=== PATIENT | female | born 1985 | race African-American/Black ===

== ENCOUNTER 2018-09-09 20:28 | Emergency (ER) | payer SELFPAY ==
[2018-09-09 20:43] VITALS: BP 111/69
--- NOTE | 2018-09-09 21:16 | EDM.PDOC ---
ED HPI GENERAL MEDICAL PROBLEM - General Chief Complaint: Lower Extremity Injury/Pain Stated Complaint: RT HIP HURTS Time Seen by Provider: 09/09/18 21:16 Source of Information: Reports: Patient - History of Present Illness INITIAL COMMENTS - FREE TEXT/NARRATIVE: HISTORY AND PHYSICAL: History of present illness: [Patient presents with right hip pain that began insidiously she rates 5 out of 10 radiates down along the iliotibial band half way to the knee no actual knee pain she moves fairly freely on and off the exam table does not elicit much for pain behaviors she is able to flex her knee without pain but lateral extension seems to be quite uncomfortable no fever nausea vomiting chills sweats no chest pain shortness breath headache dizziness palpitation no bowel or urine symptoms Patient denies any trauma or overuse 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 Past medical history: As per history of present illness and as reviewed below otherwise noncontributory. Surgical history: As per history of present illness and as reviewed below otherwise noncontributory. Social history: No reported history of drug or alcohol abuse. Family history: As per history of present illness and as reviewed below otherwise noncontributory. Physical exam: HEENT: Atraumatic, normocephalic, pupils reactive, negative for conjunctival pallor or scleral icterus, mucous membranes moist, throat clear, neck supple, nontender, trachea midline. Lungs: Clear to auscultation, breath sounds equal bilaterally, chest nontender. Heart: S1S2, regular, negative for clicks, rubs, or JVD. Abdomen: Soft, nondistended, nontender. Negative for masses or hepatosplenomegaly. Negative for costovertebral tenderness. Pelvis: Stable nontender. Genitourinary: Deferred. Rectal: Deferred. Extremities: Atraumatic, negative for cords or calf pain. Neurovascular unremarkable. Right hip no redness warmth or bruising no swelling free range of motion of the knee there is pain on lateral extension and rotation of the hip entire limb is neurovascularly intact Neuro: Awake, alert, oriented. Cranial nerves II through XII unremarkable. Cerebellum unremarkable. Motor and sensory unremarkable throughout. Exam nonfocal. Diagnostics: [Right hip 2 views with pelvis ] Therapeutics: [Toradol 10 mg by mouth 3 times a day when necessary #15 no refill ] Impression: [Right hip pain] Definitive disposition and diagnosis as appropriate pending reevaluation and review of above. Right Hip Pain Score (Numeric/FACES): 6 - Related Data Allergies Allergy/AdvReac Type Severity Reaction Status Date / Time No Known Allergies Allergy Verified 09/09/18 20:40 Home Meds: Home Meds . 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 Musculoskeletal History: Reports: None Neurological History: Reports: Migraines Psychiatric History: Reports: None Endocrine/Metabolic History: Reports: None Hematologic History: Reports: None Immunologic History: Reports: None Oncologic (Cancer) History: Reports: None Dermatologic History: Reports: None - Infectious Disease History Infectious Disease History: Reports: None - Past Surgical History Head Surgeries/Procedures: Reports: None Endocrine Surgical History: Reports: None Neurological Surgical History: Reports: None Musculoskeletal Surgical History: Reports: None Oncologic Surgical History: Reports: None Dermatological Surgical History: Reports: None Social & Family History - Family History Family Medical History: Noncontributory - Tobacco Use Smoking Status *Q: Never Smoker Second Hand Smoke Exposure: No - Caffeine Use Caffeine Use: Reports: None - Recreational Drug Use Recreational Drug Use: No Review of Systems - Review of Systems Review Of Systems: See Below ED EXAM, GENERAL - Physical Exam Exam: See Below Course - Vital Signs Last Recorded V/S: Last Vital Signs Temp 97.6 F 09/09/18 20:40 Pulse 100 09/09/18 20:40 Resp 16 09/09/18 20:40 BP 111/69 09/09/18 20:40 Pulse Ox 97 09/09/18 20:40 - Orders/Labs/Meds Labs: Laboratory Tests 09/09/18 Range/Units 20:50 Urine HCG, Qual NEGATIVE (NEGATIVE) Departure - Departure Time of Disposition: 22:10 Disposition: Home, Self-Care 01 Condition: Good Clinical Impression: Right hip pain - Discharge Information Referrals: PCP,None [Primary Care Provider] - Forms: ED Department Discharge Additional Instructions: Medication as prescribed Return if symptoms persist or worsen Follow-up with orthopedist, phone number below to schedule appropriate follow-up , [facility] [address], [address] [place] [address] my orthopedic The following information is given to patients seen in the emergency department who are being discharged to home. This information is to outline your options for follow-up care. We provide all patients seen in our emergency department with a follow-up referral. The need for follow-up, as well as the timing and circumstances, are variable depending upon the specifics of your emergency department visit. If you don't have a primary care physician on staff, we will provide you with a referral. We always advise you to contact your personal physician following an emergency department visit to inform them of the circumstance of the visit and for follow-up with them and/or the need for any referrals to a consulting specialist. The emergency department will also refer you to a specialist when appropriate. This referral assures that you have the opportunity for follow-up care with a specialist. All of these measure are taken in an effort to provide you with optimal care, which includes your follow-up. Under all circumstances we always encourage you to contact your private physician who remains a resource for coordinating your care. When calling for follow-up care, please make the office aware that this follow-up is from your recent emergency room visit. If for any reason you are refused follow-up, please contact the [facility] emergency department at and asked to speak to the emergency department charge nurse.
--- NOTE | 2018-09-09 21:37 | CR ---
Indication: Pain for 1 day. No injury. Technique: An AP view of the pelvis and two views of the right hip were obtained. Comparison: None Findings: Both femoral heads are seated within the acetabula. No acute fracture or subluxation is identified. Impression: No acute fracture. Dictated by Melissa Pelaez MD @ Sep 09 2018 9:36PM Signed by Dr. Melissa Pelaez @ Sep 09 2018 9:36PM
[2018-09-09] MEDS ORDERED: Ketorolac 10 MG Tab PO ONE (22:12)
== END 2018-09-09 22:27 | disposition home or self-care (01) ==
LOC: MW.ED 20:28
DX: M25.551 Pain in right hip (principal)
CPT/HCPCS: 73502; 81025; 99283; A9270

== ENCOUNTER 2018-11-12 09:33 | Emergency (ER) | payer SELFPAY ==
[2018-11-12] MEDS ORDERED: Acetaminophen 325 MG Tab PO ONE (09:41)
--- NOTE | 2018-11-12 09:44 | EDM.PDOC ---
ED HPI GENERAL MEDICAL PROBLEM - General Chief Complaint: General Stated Complaint: body is in pain Time Seen by Provider: 11/12/18 09:39 - History of Present Illness INITIAL COMMENTS - FREE TEXT/NARRATIVE: HISTORY AND PHYSICAL: History of present illness: Patient 33-year-old black female with history of anxiety who presents with a concern of fall from standing position which she injured her mid back she is requesting x-rays is no numbness no weakness she denies any headache or neck pain or trauma or other concern. Review of systems: As per history of present illness and below otherwise all systems reviewed and negative. Past medical history: As per history of present illness and as reviewed below otherwise noncontributory. Surgical history: As per history of present illness and as reviewed below otherwise noncontributory. Social history: No reported history of drug or alcohol abuse. Family history: As per history of present illness and as reviewed below otherwise noncontributory. Physical exam: HEENT: Atraumatic, normocephalic, pupils reactive, negative for conjunctival pallor or scleral icterus, mucous membranes moist, throat clear, neck supple, nontender, trachea midline. Lungs: Clear to auscultation, breath sounds equal bilaterally, chest nontender. Heart: S1S2, regular, negative for clicks, rubs, or JVD. Abdomen: Soft, nondistended, nontender. Negative for masses or hepatosplenomegaly. Negative for costovertebral tenderness. Pelvis: Stable nontender. Genitourinary: Deferred. Rectal: Deferred. Extremities: Atraumatic, negative for cords or calf pain. Neurovascular unremarkable. Neuro: Awake, alert, oriented. Cranial nerves II through XII unremarkable. Cerebellum unremarkable. Motor and sensory unremarkable throughout. Exam nonfocal. Back: Patient has no vertebral body or point tenderness at some mild paravertebral tenderness of thoracic spine she is able to stand on her toes back on her heels deep tendon reflexes motor and sensory are normal Diagnostics: X-ray thoracic spine UCG Therapeutics: Tylenol 650 mg by mouth Impression: #1 history of fall #2 thoracic strain/contusion Definitive disposition and diagnosis as appropriate pending reevaluation and review of above. Back Pain Score (Numeric/FACES): 10 - Related Data Allergies Allergy/AdvReac Type Severity Reaction Status Date / Time No Known Allergies Allergy Verified 11/12/18 09:41 Home Meds: Home Meds . 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 Musculoskeletal History: Reports: None Neurological History: Reports: Migraines Psychiatric History: Reports: None Endocrine/Metabolic History: Reports: None Hematologic History: Reports: None Immunologic History: Reports: None Oncologic (Cancer) History: Reports: None Dermatologic History: Reports: None - Infectious Disease History Infectious Disease History: Reports: None - Past Surgical History Head Surgeries/Procedures: Reports: None Endocrine Surgical History: Reports: None Neurological Surgical History: Reports: None Musculoskeletal Surgical History: Reports: None Oncologic Surgical History: Reports: None Dermatological Surgical History: Reports: None Social & Family History - Family History Family Medical History: Noncontributory - Caffeine Use Caffeine Use: Reports: None ED ROS GENERAL - Review of Systems Review Of Systems: ROS reveals no pertinent complaints other than HPI. ED EXAM, GENERAL - Physical Exam Exam: See Below (See dictation) Course - Vital Signs Last Recorded V/S: Last Vital Signs Temp 36.1 C 11/12/18 09:39 Pulse 74 11/12/18 09:39 Resp 16 11/12/18 09:39 BP 111/79 11/12/18 09:39 Pulse Ox 98 11/12/18 09:39 - Orders/Labs/Meds Orders: Active Orders 24 hr Category Date Time Status Thoracic Spine 2V [CR] Stat Exams 11/12/18 09:41 Ordered HCG QUALITATIVE,SERUM [CHEM] Stat Lab 11/12/18 09:40 Ordered Acetaminophen [Tylenol] Med 11/12/18 09:41 Once 650 mg PO NOW ONE Departure - Departure Time of Disposition: 09:43 Disposition: Home, Self-Care 01 Condition: Good Clinical Impression: Thoracic myofascial strain, Contusion, History of fall - Discharge Information Additional Instructions: The following information is given to patients seen in the emergency department who are being discharged to home. This information is to outline your options for follow-up care. We provide all patients seen in our emergency department with a follow-up referral. The need for follow-up, as well as the timing and circumstances, are variable depending upon the specifics of your emergency department visit. If you don't have a primary care physician on staff, we will provide you with a referral. We always advise you to contact your personal physician following an emergency department visit to inform them of the circumstance of the visit and for follow-up with them and/or the need for any referrals to a consulting specialist. The emergency department will also refer you to a specialist when appropriate. This referral assures that you have the opportunity for followup care with a specialist. All of these measure are taken in an effort to provide you with optimal care, which includes your followup. Under all circumstances we always encourage you to contact your private physician who remains a resource for coordinating your care. When calling for followup care, please make the office aware that this follow-up is from your recent emergency room visit. If for any reason you are refused follow-up, please contact the [facility] emergency department at and asked to speak to the emergency department charge nurse. Motrin/ Tylenol directed follow-up primary medical doctor return as needed as discussed - My Orders Last 24 Hours: My Active Orders 11/12/18 09:40 HCG QUALITATIVE,SERUM [CHEM] Stat 11/12/18 09:41 Thoracic Spine 2V [CR] Stat Acetaminophen [Tylenol] 650 mg PO NOW ONE - Assessment/Plan Last 24 Hours: My Active Orders 11/12/18 09:40 HCG QUALITATIVE,SERUM [CHEM] Stat 11/12/18 09:41 Thoracic Spine 2V [CR] Stat Acetaminophen [Tylenol] 650 mg PO NOW ONE
--- NOTE | 2018-11-12 10:49 | CR ---
INDICATION: Fell; upper back pain. TECHNIQUE: Two-view study thoracic spine. FINDINGS: No evidence of fracture. No abnormal paraspinal soft tissue mass densities. IMPRESSION: Negative radiographic examination of the thoracic spine. Dictated by Bekah Flores MD @ Nov 12 2018 10:47AM Signed by Dr. Bekah Flores @ Nov 12 2018 10:48AM
[2018-11-12 11:29] VITALS: BP 103/79
== END 2018-11-12 11:27 | disposition home or self-care (01) ==
LOC: MW.ED 09:33
DX: S29.012A Strain of muscle and tendon of back wall of thorax, initial encounter (principal); W10.9XXA Fall (on) (from) unspecified stairs and steps, initial encounter
CPT/HCPCS: 36415; 72070; 84703; 99283; A9270

== ENCOUNTER 2019-07-04 23:01 | Emergency (ER) | payer SELFPAY ==
[2019-07-04] MEDS ORDERED: Naproxen 500 MG Tab PO ONE (23:27)
[2019-07-04] MEDS ORDERED: Acetaminophen/Butalbital/Caffeine 325-50-40 MG Tab PO ONE (23:27)
[2019-07-04] MEDS ORDERED: Metoclopramide 10 MG Tab PO ONE (23:29)
--- NOTE | 2019-07-04 23:31 | EDM.PDOC ---
ED HPI GENERAL MEDICAL PROBLEM - General Chief Complaint: Headache Stated Complaint: MIGRAINES Time Seen by Provider: 07/04/19 23:12 - History of Present Illness INITIAL COMMENTS - FREE TEXT/NARRATIVE: 34-year-old female presents with migraine headache. Patient ports that she is had migraine headaches as long as she can remember. Typically they occur once a week to once a month. This headache started this afternoon at work. Headache severity 7/10. Quality is aching. Bilateral retro-orbital which is the typical spot of her migraines. She denies any visual symptomology and there is no focal weakness. No nausea or vomiting. This is consistent with her previous headaches. Denies any recent fevers or neck stiffness. No recent sick contacts. No recent trips or travels. No recent joint pain or rashes. Normal bowel bladder habits. No chest pain or shortness of breath. headache Pain Score (Numeric/FACES): 7 - Related Data Allergies Allergy/AdvReac Type Severity Reaction Status Date / Time No Known Allergies Allergy Verified 07/04/19 23:11 Home Meds: Home Meds . 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 Musculoskeletal History: Reports: None Neurological History: Reports: Migraines Psychiatric History: Reports: None Endocrine/Metabolic History: Reports: None Hematologic History: Reports: None Immunologic History: Reports: None Oncologic (Cancer) History: Reports: None Dermatologic History: Reports: None - Infectious Disease History Infectious Disease History: Reports: None - Past Surgical History Head Surgeries/Procedures: Reports: None Endocrine Surgical History: Reports: None Neurological Surgical History: Reports: None Musculoskeletal Surgical History: Reports: None Oncologic Surgical History: Reports: None Dermatological Surgical History: Reports: None Social & Family History - Family History Family Medical History: Noncontributory - Tobacco Use Smoking Status *Q: Never Smoker - Caffeine Use Caffeine Use: Reports: None - Recreational Drug Use Recreational Drug Use: No ED ROS GENERAL - Review of Systems Review Of Systems: Comprehensive ROS is negative, except as noted in HPI. ED EXAM, GENERAL - Physical Exam Exam: See Below Free Text/Narrative:: General: No acute distress. Comfortable. Heent: Examination revealed no pallor, no icterus, no lymphadenopathy. The patient normal posterior pharynx, moist mucous membranes. Neck: Supple. No JVD. No rigidity. Heart: Normal rate and rhythm. No murmurs appreciated. Lungs: Bilaterally clear to auscultation. No focal findings. Abdomen: The patient had bowel sounds present, nontender, nondistended, soft, no CVA tenderness. Neuro: Pt alert and oriented. PERRL. EOMI. Strength maintained in all four extremities. 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 Normal phonation without evidence of receptive or expressive pathology. No facial droop. 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 Normal reflexes BLEs (2+ patellar). Negative clonus. Normal power hip flexion. Normal finger to nose and rapid alternating hand movements bilaterally. Normal power below knee, plntar and dorsiflexion of the foot. No clonus BLEs. Skin: Exposed areas appeared normally perfused, warm, normal color with no meaningful rashes or lesions. Extremities: Peripheral examination revealed no pedal edema. Peripheral pulses were 2+. Course - Vital Signs Text/Narrative:: Patient declines IV medication. We will try several oral medications at 1 time. This presentation is not consistent with subarachnoid hemorrhage. Not consistent with pseudotumor. She chooses to leave just after taking her medications. She wants to go home and go to bed. Last Recorded V/S: Last Vital Signs Temp 97 F 07/04/19 23:11 Pulse 75 07/04/19 23:11 Resp 14 07/04/19 23:11 BP 103/66 07/04/19 23:11 Pulse Ox 97 07/04/19 23:11 - Orders/Labs/Meds Meds: Medications Discontinued Medications Generic Name Dose Route Start Last Admin Trade Name Freq PRN Reason Stop Dose Admin Acetaminophen/Butalbital/Caffeine 1 tab 07/04/19 23:27 07/04/19 23:33 Fioricet 325-50-40 Mg PO 07/04/19 23:28 1 tab ONETIME ONE Administration Metoclopramide HCl 10 mg 07/04/19 23:29 07/04/19 23:33 Reglan PO 07/04/19 23:30 10 mg ONETIME ONE Administration Naproxen 500 mg 07/04/19 23:27 07/04/19 23:34 Naprosyn PO 07/04/19 23:28 500 mg ONETIME ONE Administration Departure - Departure Time of Disposition: 23:48 Disposition: Home, Self-Care 01 Condition: Good Clinical Impression: Headache Qualifiers: Headache type: unspecified Headache chronicity pattern: acute headache Intractability: not intractable Qualified Code(s): R51 - Headache - Discharge Information Referrals: PCP,None [Primary Care Provider] - Forms: ED Department Discharge Additional Instructions: Follow-up with your primary care provider as needed. Return to emergency with any headaches or other troubling symptoms which are new for you or which involve focal weakness, vision changes, confusion or any other troubling symptom. The following information is given to patients seen in the emergency department who are being discharged to home. This information is to outline your options for follow-up care. We provide all patients seen in our emergency department with a follow-up referral. The need for follow-up, as well as the timing and circumstances, are variable depending upon the specifics of your emergency department visit. If you don't have a primary care physician on staff, we will provide you with a referral. We always advise you to contact your personal physician following an emergency department visit to inform them of the circumstance of the visit and for follow-up with them and/or the need for any referrals to a consulting specialist. The emergency department will also refer you to a specialist when appropriate. This referral assures that you have the opportunity for follow-up care with a specialist. All of these measure are taken in an effort to provide you with optimal care, which includes your follow-up. Under all circumstances we always encourage you to contact your private physician who remains a resource for coordinating your care. When calling for follow-up care, please make the office aware that this follow-up is from your recent emergency room visit. If for any reason you are refused follow-up, please contact the [facility] Emergency Department at and asked to speak to the emergency department charge nurse. Sepsis Event Note - Evaluation Sepsis Screening Result: No Definite Risk - Focused Exam Vital Signs: Vital Signs Temp Pulse Resp BP Pulse Ox 07/04/19 23:11 97 F 75 14 103/66 97 Date Exam was Performed: 07/04/19 Time Exam was Performed: 23:48
[2019-07-05 00:03] VITALS: BP 112/78; PULSE 69
== END 2019-07-04 23:53 | disposition home or self-care (01) ==
LOC: MW.ED 23:01
DX: R51 Headache (principal); J45.909 Unspecified asthma, uncomplicated
CPT/HCPCS: 99283; A9270; 99282

== ENCOUNTER 2019-07-23 11:59 | Emergency (ER) | payer SELFPAY ==
[2019-07-23 12:25] VITALS: BP 105/65; PULSE 83
--- NOTE | 2019-07-23 12:51 | EDM.PDOC ---
ED HPI GENERAL MEDICAL PROBLEM - General Chief Complaint: Upper Extremity Injury/Pain Stated Complaint: PAIN IN RT FINGERS Time Seen by Provider: 07/23/19 12:50 Source of Information: Reports: Patient History Limitations: Reports: No Limitations - History of Present Illness INITIAL COMMENTS - FREE TEXT/NARRATIVE: HISTORY AND PHYSICAL: History of present illness: Is a 34-year-old female presents the ED with complaint of a rash to her right fingers. She states it started about 3 days ago and is itchy and painful. She has been using [id number] hydrocortisone cream without any relief of symptoms. She has not had anything like this in the past and denies any new detergents, lotions, etc. No one else in the household with a rash. Review of systems: As per history of present illness and below otherwise all systems reviewed and negative. Past medical history: As per history of present illness and as reviewed below otherwise noncontributory. Surgical history: As per history of present illness and as reviewed below otherwise noncontributory. Social history: No reported history of drug or alcohol abuse. Family history: As per history of present illness and as reviewed below otherwise noncontributory. Physical exam: General: Patient sitting comfortably in no acute distress and nontoxic appearing HEENT: Atraumatic, normocephalic, pupils reactive, negative for conjunctival pallor or scleral icterus, mucous membranes moist, throat clear, neck supple, nontender, trachea midline. No meningeal signs. Skin: Patient has vesicular eruptions with dry scaly skin on the palmar aspect of the right second third and fourth digits Extremities: Atraumatic, negative for cords or calf pain. Neurovascular unremarkable. Neuro: Awake, alert, oriented. Cranial nerves II through XII unremarkable. Cerebellum unremarkable. Motor and sensory unremarkable throughout. Exam nonfocal. Notes: Diagnostics: none Therapeutics: none Prescriptions: Betamethasone ointment Impression: Dyshidrotic eczema Plan: Use ointment to the affected area twice daily as instructed Use lukewarm water and mild soap and washing hands and pat dry thoroughly after washing. Wear cotton gloves and avoid any possible irritants including harsh detergents, lotions, dyes etc. Follow-up with primary care provider Return to ED as needed as discussed Definitive disposition and diagnosis as appropriate pending reevaluation and review of above. 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 Musculoskeletal History: Reports: None Neurological History: Reports: Migraines Psychiatric History: Reports: None Endocrine/Metabolic History: Reports: None Hematologic History: Reports: None Immunologic History: Reports: None Oncologic (Cancer) History: Reports: None Dermatologic History: Reports: None - Infectious Disease History Infectious Disease History: Reports: None - Past Surgical History Head Surgeries/Procedures: Reports: None Endocrine Surgical History: Reports: None Neurological Surgical History: Reports: None Musculoskeletal Surgical History: Reports: None Oncologic Surgical History: Reports: None Dermatological Surgical History: Reports: None Social & Family History - Family History Family Medical History: Noncontributory - Tobacco Use Smoking Status *Q: Never Smoker - Caffeine Use Caffeine Use: Reports: None - Recreational Drug Use Recreational Drug Use: No Review of Systems - Review of Systems Review Of Systems: Comprehensive ROS is negative, except as noted in HPI. ED EXAM, GENERAL - Physical Exam Exam: See Below (see dictation) Course - Vital Signs Last Recorded V/S: Last Vital Signs Temp 97.7 F 07/23/19 12:23 Pulse 83 07/23/19 12:23 Resp 16 07/23/19 12:23 BP 105/65 07/23/19 12:23 Pulse Ox 100 07/23/19 12:23 Departure - Departure Time of Disposition: 12:51 Disposition: Home, Self-Care 01 Condition: Good Clinical Impression: Dyshidrotic eczema - Discharge Information Prescriptions: Betamethasone Dipropionate [Diprosone 0.05% Oint] 15 gm .XX BID 14 Days #1 tube Referrals: PCP,None [Primary Care Provider] - Forms: ED Department Discharge Additional Instructions: The following information is given to patients seen in the emergency department who are being discharged to home. This information is to outline your options for follow-up care. We provide all patients seen in our emergency department with a follow-up referral. The need for follow-up, as well as the timing and circumstances, are variable depending upon the specifics of your emergency department visit. If you don't have a primary care physician on staff, we will provide you with a referral. We always advise you to contact your personal physician following an emergency department visit to inform them of the circumstance of the visit and for follow-up with them and/or the need for any referrals to a consulting specialist. The emergency department will also refer you to a specialist when appropriate. This referral assures that you have the opportunity for follow-up care with a specialist. All of these measure are taken in an effort to provide you with optimal care, which includes your follow-up. Under all circumstances we always encourage you to contact your private physician who remains a resource for coordinating your care. When calling for follow-up care, please make the office aware that this follow-up is from your recent emergency room visit. If for any reason you are refused follow-up, please contact the [facility] at and asked to speak to the emergency department charge nurse. [facility] [address] [place] [address] [id number] Use ointment to the affected area twice daily as instructed Use lukewarm water and mild soap and washing hands and pat dry thoroughly after washing. Wear cotton gloves and avoid any possible irritants including harsh detergents, lotions, dyes etc. Follow-up with primary care provider Return to ED as needed as discussed Sepsis Event Note - Evaluation Sepsis Screening Result: No Definite Risk - Focused Exam Vital Signs: Vital Signs Temp Pulse Resp BP Pulse Ox 07/23/19 12:23 97.7 F 83 16 105/65 100 Date Exam was Performed: 07/23/19 Time Exam was Performed: 12:57
== END 2019-07-23 13:13 | disposition home or self-care (01) ==
LOC: MW.ED 11:59
DX: L30.1 Dyshidrosis [pompholyx] (principal)
CPT/HCPCS: 99282

== ENCOUNTER 2019-10-30 02:59 | Emergency (ER) | payer SELFPAY ==
[2019-10-30] MEDS ORDERED: Sodium Chloride 0.9% 2.5 ML Syringe FLUSH PRN (03:16)
[2019-10-30] MEDS ORDERED: Sodium Chloride 0.9% 10 ML Syringe FLUSH PRN (03:16)
[2019-10-30] MEDS ORDERED: Aspirin 81 MG Tab.Chew PO ONE (03:16)
--- NOTE | 2019-10-30 03:23 | EDM.PDOC ---
ED HPI GENERAL MEDICAL PROBLEM - General Chief Complaint: General Stated Complaint: WEAK, CHEST PAIN Time Seen by Provider: 10/30/19 03:12 Source of Information: Reports: Patient History Limitations: Reports: No Limitations - History of Present Illness INITIAL COMMENTS - FREE TEXT/NARRATIVE: History of present illness: [Patient is 34-year-old female with no significant past medical history who presents with "heart pain" for the last couple hours. She states that she was at home resting when the pain started. She states that she has been under stress recently because of the of her brother that occurred recently. She denies any cardiac history. She does not smoke. She denies hypertension and diabetes. She did not try taking any medication to treat her symptoms at home. Denies associated shortness of breath, fever, chills, abdominal pain, vomiting, diarrhea. Denies palpitations, history of arrhythmia, DVT or PE. No major recent surgeries or long trips or other risk factors for PE.] Review of systems: As per history of present illness and below otherwise all systems reviewed and negative. Past medical history: As per history of present illness and as reviewed below otherwise noncontributory. Surgical history: As per history of present illness and as reviewed below otherwise noncontributory. Social history: No reported history of drug or alcohol abuse. Family history: As per history of present illness and as reviewed below otherwise noncontributory. Physical exam: General: Awake, alert, no acute distress, A&O X3. HEENT: Atraumatic, normocephalic, pupils reactive, negative for conjunctival pallor or scleral icterus, mucous membranes moist, throat clear, neck supple, nontender, trachea midline. Lungs: Clear to auscultation, breath sounds equal bilaterally, chest nontender. Heart: RRR, normal S1S2, no JVD. Abdomen: Soft, nondistended, nontender. Negative for masses or hepatosplenomegaly. Negative for costovertebral tenderness. Pelvis: Stable nontender. Genitourinary: Deferred. Rectal: Deferred. Extremities: Atraumatic, no edema, Neurovascular unremarkable. Neuro: Motor and sensory grossly intact throughout. Exam nonfocal. Diagnostics: [] Therapeutics: [] Impression: [] Plan: [] Definitive disposition and diagnosis as appropriate pending reevaluation and review of above. heart Pain Score (Numeric/FACES): 5 - Related Data Allergies Allergy/AdvReac Type Severity Reaction Status Date / Time No Known Allergies Allergy Verified 10/30/19 03:08 Home Meds: Home Meds . 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 Musculoskeletal History: Reports: None Neurological History: Reports: Migraines Psychiatric History: Reports: None Endocrine/Metabolic History: Reports: None Hematologic History: Reports: None Immunologic History: Reports: None Oncologic (Cancer) History: Reports: None Dermatologic History: Reports: None - Infectious Disease History Infectious Disease History: Reports: None - Past Surgical History Head Surgeries/Procedures: Reports: None Endocrine Surgical History: Reports: None Neurological Surgical History: Reports: None Musculoskeletal Surgical History: Reports: None Oncologic Surgical History: Reports: None Dermatological Surgical History: Reports: None Social & Family History - Family History Family Medical History: Noncontributory - Tobacco Use Smoking Status *Q: Never Smoker - Caffeine Use Caffeine Use: Reports: None - Recreational Drug Use Recreational Drug Use: No ED ROS GENERAL - Review of Systems Review Of Systems: Comprehensive ROS is negative, except as noted in HPI. ED EXAM, GENERAL - Physical Exam Exam: See Below (see h and p) EKG INTERPRETATION EKG Date: 10/30/19 Time: 03:04 Rhythm: NSR Rate (Beats/Min): 103 [place]: Normal P-Wave: Present QRS: Normal ST-T: Normal QT: Normal EKG Interpretation Comments: sinus tach Course - Vital Signs Text/Narrative:: Patient had a elevated d-dimer, CTA of the chest was negative for PE or other acute intrathoracic abnormality. Troponin negative. On reassessment she is resting comfortably. Does not appear to be in acute distress. Is not having any active chest pain. I believe symptoms are likely due to her recent stress related to the loss of her brother. Encouraged her to follow-up in the outpatient setting with PCP. Return precautions provided. Otherwise she was stable and well-appearing at discharge. Last Recorded V/S: Last Vital Signs Temp 35.9 C L 10/30/19 03:06 Pulse 72 10/30/19 04:30 Resp 18 10/30/19 04:30 BP 95/65 10/30/19 03:06 Pulse Ox 100 10/30/19 04:30 - Orders/Labs/Meds Orders: Active Orders 24 hr Category Date Time Status Sodium Chloride 0.9% [Saline Flush] Med 10/30/19 03:16 Active 10 ml FLUSH ASDIRECTED PRN Sodium Chloride 0.9% [Saline Flush] Med 10/30/19 03:16 Active 2.5 ml FLUSH ASDIRECTED PRN Saline Lock Insert [OM.PC] Stat Oth 10/30/19 03:16 Ordered Medication Orders Sodium Chloride (Saline Flush) 10 ml FLUSH ASDIRECTED PRN PRN Reason: Keep Vein Open Sodium Chloride (Saline Flush) 2.5 ml FLUSH ASDIRECTED PRN PRN Reason: Keep Vein Open Labs: Laboratory Tests 10/30/19 10/30/19 10/30/19 Range/Units 03:27 03:27 03:27 WBC 3.81 L (4.0-11.0) K/uL RBC 3.90 L (4.30-5.90) M/uL Hgb 9.9 L (12.0-16.0) g/dL Hct 29.7 L (36.0-46.0) % MCV 76.2 L (80.0-98.0) fL MCH 25.4 L (27.0-32.0) pg MCHC 33.3 (31.0-37.0) g/dL RDW Std Deviation 45.4 (28.0-62.0) fl RDW Coeff of Anshu 16 H (11.0-15.0) % Plt Count 146 L (150-400) K/uL Neut % (Auto) 52.1 (48.0-80.0) % Lymph % (Auto) 38.1 (16.0-40.0) % [place] % (Auto) 7.9 (0.0-15.0) % Eos % (Auto) 1.6 (0.0-7.0) % Baso % (Auto) 0.3 (0.0-1.5) % Neut # (Auto) 2.0 (1.4-5.7) K/uL Lymph # (Auto) 1.5 (0.6-2.4) K/uL Cedar # (Auto) 0.3 (0.0-0.8) K/uL Eos # (Auto) 0.1 (0.0-0.7) K/uL Baso # (Auto) 0.0 (0.0-0.1) K/uL Nucleated RBC % 0.0 /100WBC Nucleated RBCs # 0 K/uL D-Dimer, Quantitative 2.07 H (0.0-0.50) mg/L FEU Sodium 141 (136-145) mmol/L Potassium 3.1 L (3.5-5.1) mmol/L Chloride 107 (98-107) mmol/L Carbon Dioxide 21.0 (21.0-32.0) mmol/L BUN 9 (7.0-18.0) mg/dL Creatinine 1.0 (0.6-1.0) mg/dL Est Cr Clr Drug Dosing 72.00 mL/min Estimated GFR (MDRD) > 60.0 ml/min Glucose 92 (74-106) mg/dL Calcium 8.8 (8.5-10.1) mg/dL Troponin I < 0.050 (0.000-0.056) ng/mL HCG, Qual (NEG) 10/30/19 Range/Units 03:27 WBC (4.0-11.0) K/uL RBC (4.30-5.90) M/uL Hgb (12.0-16.0) g/dL Hct (36.0-46.0) % MCV (80.0-98.0) fL MCH (27.0-32.0) pg MCHC (31.0-37.0) g/dL RDW Std Deviation (28.0-62.0) fl RDW Coeff of Anshu (11.0-15.0) % Plt Count (150-400) K/uL Neut % (Auto) (48.0-80.0) % Lymph % (Auto) (16.0-40.0) % Cedar % (Auto) (0.0-15.0) % Eos % (Auto) (0.0-7.0) % Baso % (Auto) (0.0-1.5) % Neut # (Auto) (1.4-5.7) K/uL Lymph # (Auto) (0.6-2.4) K/uL Cedar # (Auto) (0.0-0.8) K/uL Eos # (Auto) (0.0-0.7) K/uL Baso # (Auto) (0.0-0.1) K/uL Nucleated RBC % /100WBC Nucleated RBCs # K/uL D-Dimer, Quantitative (0.0-0.50) mg/L FEU Sodium (136-145) mmol/L Potassium (3.5-5.1) mmol/L Chloride (98-107) mmol/L Carbon Dioxide (21.0-32.0) mmol/L BUN (7.0-18.0) mg/dL Creatinine (0.6-1.0) mg/dL Est Cr Clr Drug Dosing mL/min Estimated GFR (MDRD) ml/min Glucose (74-106) mg/dL Calcium (8.5-10.1) mg/dL Troponin I (0.000-0.056) ng/mL HCG, Qual NEGATIVE (NEG) Meds: Medications Generic Name Dose Route Start Last Admin Trade Name Freq PRN Reason Stop Dose Admin Sodium Chloride 10 ml 10/30/19 03:16 Saline Flush FLUSH ASDIRECTED PRN Keep Vein Open Sodium Chloride 2.5 ml 10/30/19 03:16 Saline Flush FLUSH ASDIRECTED PRN Keep Vein Open Discontinued Medications Generic Name Dose Route Start Last Admin Trade Name Freq PRN Reason Stop Dose Admin Aspirin 324 mg 10/30/19 03:16 10/30/19 03:30 Aspirin PO 10/30/19 03:17 324 mg ONETIME ONE Administration Iopamidol 50 ml 10/30/19 04:35 10/30/19 04:36 Isovue-370 (76%) IV 10/30/19 04:36 50 ml ONETIME STA Administration Departure - Departure Time of Disposition: 05:03 Disposition: Home, Self-Care 01 Condition: Good Clinical Impression: Atypical chest pain - Discharge Information Instructions: Nonspecific Chest Pain, Adult Referrals: PCP,None [Primary Care Provider] - Forms: ED Department Discharge Additional Instructions: Follow-up with primary care doctor. Return to the ER with any new or worsening symptoms. The following information is given to patients seen in the emergency department who are being discharged to home. This information is to outline your options for follow-up care. We provide all patients seen in our emergency department with a follow-up referral. The need for follow-up, as well as the timing and circumstances, are variable depending upon the specifics of your emergency department visit. If you don't have a primary care physician on staff, we will provide you with a referral. We always advise you to contact your personal physician following an emergency department visit to inform them of the circumstance of the visit and for follow-up with them and/or the need for any referrals to a consulting specialist. The emergency department will also refer you to a specialist when appropriate. This referral assures that you have the opportunity for follow-up care with a specialist. All of these measure are taken in an effort to provide you with optimal care, which includes your follow-up. Under all circumstances we always encourage you to contact your private physician who remains a resource for coordinating your care. When calling for follow-up care, please make the office aware that this follow-up is from your recent emergency room visit. If for any reason you are refused follow-up, please contact the [facility] Emergency Department at and asked to speak to the emergency department charge nurse. Sepsis Event Note (ED) - Evaluation Sepsis Screening Result: No Definite Risk - Focused Exam Vital Signs: Vital Signs Temp Pulse Resp BP Pulse Ox 10/30/19 04:30 72 18 100 10/30/19 03:06 35.9 C L 76 17 95/65 93 L - My Orders Last 24 Hours: My Active Orders 10/30/19 03:16 Sodium Chloride 0.9% [Saline Flush] 10 ml FLUSH ASDIRECTED PRN Sodium Chloride 0.9% [Saline Flush] 2.5 ml FLUSH ASDIRECTED PRN Saline Lock Insert [OM.PC] Stat - Assessment/Plan Last 24 Hours: My Active Orders 10/30/19 03:16 Sodium Chloride 0.9% [Saline Flush] 10 ml FLUSH ASDIRECTED PRN Sodium Chloride 0.9% [Saline Flush] 2.5 ml FLUSH ASDIRECTED PRN Saline Lock Insert [OM.PC] Stat
[2019-10-30 03:58] LABS: BLOOD UREA NITROGEN,BUN 9 mg/dL (7.0-18.0); CHLORIDE,CL 107 mmol/L (98-107); GLUCOSE RANDOM 92 mg/dL (74-106); POTASSIUM,K 3.1 mmol/L (3.5-5.1); SODIUM,NA 141 mmol/L (136-145)
[2019-10-30] MEDS ORDERED: Iopamidol 755 MG/ML 50 ML Bottle IV STA (04:35)
[2019-10-30 04:50] VITALS: PULSE 72
--- NOTE | 2019-10-30 04:51 | CR ---
Indication: Chest pain, shortness of breath Technique: Chest 1 view Comparison: July 04, 2015 Findings/Impression: Cardiovascular and mediastinum: Heart size and vasculature are normal in caliber and appearance. Mediastinum is within normal limits. Lungs and pleural space: Calcified granuloma in the right upper lobe. No focal infiltrate. No sign of pleural effusion. No pneumothorax. Bones and soft tissues: No significant findings. Dictated by Beatrice Monroy MD @ Oct 30 2019 4:48AM Signed by Dr. Beatrice Monroy @ Oct 30 2019 4:48AM
--- NOTE | 2019-10-30 04:59 | CT ---
INDICATION: Chest pain, shortness of breath, elevated D-dimer TECHNIQUE: CT chest pulmonary PE protocol acquired with 50 cc Isovue 370 IV contrast. COMPARISON: None FINDINGS: Cardiovascular structures: Normal vascular enhancement of the pulmonary arteries, no sign of pulmonary embolism. Heart size is normal. No sign of aneurysm in the thoracic aorta. Mediastinum and chiara: No mass or adenopathy. Lungs: Calcified granuloma in the right upper lobe. Pleura and pericardium: No effusions. Chest wall and axilla: No mass or adenopathy. Upper abdomen: Unremarkable. Bones: No significant findings. IMPRESSION: No pulmonary embolism, pneumonia, or acute intrathoracic abnormality. Please note that all CT scans at this facility use dose modulation, iterative reconstruction, and/or weight-based dosing when appropriate to reduce radiation dose to as low as reasonably achievable. Dictated by Beatrice Monroy MD @ Oct 30 2019 4:49AM Signed by Dr. eBatrice Monroy @ Oct 30 2019 4:57AM
[2019-10-30 05:15] VITALS: BP 97/67
== END 2019-10-30 05:15 | disposition home or self-care (01) ==
LOC: MW.ED 02:59
DX: R07.89 Other chest pain (principal); J45.909 Unspecified asthma, uncomplicated
CPT/HCPCS: 36415; 71045; 71275; 80048; 84484; 84703; 85025; 85379; 93005; 99285; A9270; Q9967; 99284

== ENCOUNTER 2020-03-09 22:24 | Emergency (ER) | payer MEDICAID ==
[2020-03-09] MEDS ORDERED: diphenhydrAMINE 50 MG/ML SDV IVPUSH ONE (22:37)
[2020-03-09] MEDS ORDERED: Prochlorperazine 10 MG/2 ML SDV IVPUSH ONE (22:37)
[2020-03-09] MEDS ORDERED: Ketorolac 30 MG/ML SDV IVPUSH ONE (22:37)
[2020-03-09] MEDS ORDERED: Sodium Chloride 0.9% 1,000 ML IV SCH (22:45)
--- NOTE | 2020-03-09 23:29 | EDM.PDOC ---
ED HPI GENERAL MEDICAL PROBLEM - General Chief Complaint: Headache Stated Complaint: SEVERE HEADACHE Time Seen by Provider: 03/09/20 22:38 - History of Present Illness INITIAL COMMENTS - FREE TEXT/NARRATIVE: CHIEF COMPLAINT(S): Headache HISTORY OF PRESENT ILLNESS: This is a 33-year-old woman with a past medical history of migraine headaches who comes to the emergency department with a chief complaint of migraine. The patient states that she is experiencing a migraine that started earlier today. She states that it is rated 10 out of 10 and describes it as throbbing of the right side of her head associated with tearing of the right eye. She states that this is similar to her prior migraines or it starts in the right and then moves to the left and has both tearing of both eyes. She denies any purulent drainage out of her eyes but states that her eyes do hurt. She states that she does not have photosensitivity or phono sensitivity. She states that she did have vomiting times once prior to arrival. She denies any head injury, neck pain, fever or chills. She states that she has not yet tried any medication for this pain. REVIEW OF SYSTEMS: Constitutional: Denies fever, chills. Eyes: Positive for eye pain and tearing Ears, Nose, Mouth, & Throat: Denies earache Cardiovascular: Denies chest pain Respiratory: Denies shortness of breath Gastrointestinal: Denies Nausea, vomiting, diarrhea, hematochezia. Genitourinary: Denies hematuria Skin:Denies a rash Neurological: Positive for headache. Denies blurred vision, diplopia, numbness, tingling, weakness Psychiatric: Denies depression PAST MEDICAL HISTORY: As per history of present illness and as reviewed below otherwise noncontributory. SURGICAL HISTORY: As per history of present illness and as reviewed below otherwise noncontributory. LMP: 2 days ago SOCIAL HISTORY: As per history of present illness and as reviewed below otherwise noncontributory. FAMILY HISTORY: As per history of present illness and as reviewed below otherwise noncontributory. EXAMINATION OF ORGAN SYSTEMS/BODY AREAS: Constitutional: Blood pressure was 121/77, heart rate 71, respiratory rate 18 with an oxygen saturation of 100% on room air. Temperature 35.9 General: Young woman who is closing her eyes and holding her head. Psychiatric: Odd affect but appropriate mentation Eyes: No scleral icterus or conjunctival erythema no conjunctival injection and there is mild I tearing on the right. No temporal pain with palpation ENMT: Moist mucous membranes. No pharyngeal erythema tongue protrudes midline. Cardiovascular: Regular, rate, and rhythm. No gallops, murmurs, or rubs. Bilateral upper extremity pulses symmetric and intact. No peripheral edema. No JVD. Respiratory: Lungs clear to auscultation bilaterally. No wheezes, rales, or rhonchi. Gastrointestinal: Soft, non-tender, non-distended. Normoactive bowel sounds Genitourinary: No suprapubic tenderness Musculoskeletal: Normal range of motion. Skin: No lesions or abrasions. Neurological: Alert, GCS 15 strength and sensation grossly intact in upper and lower extremities bilaterally. Gait appears normal. MEDICAL DECISION MAKING AND COURSE IN THE ED WITH INTERPRETATION/REVIEW OF DIAGNOSTIC STUDIES: This is a 33-year-old woman and with a past medical history of migraine headaches who comes to the emergency department with acute headache starting earlier today with tearing of her eye and right frontal headache who has stable vital signs and has no abnormalities with her neurological examination. At this time differential includes migraine headache versus cluster headache. Will prophylax the patient on nonrebreather and provide the patient with Toradol, Compazine, Benadryl. Also provide the patient with 1 L of normal saline and reevaluate the patient for symptomatic improvement. I do not believe any labs or imaging are indicated. After pain medication administration and 1 L of bolus I did reevaluate the patient. She states that her pain had significantly improved to 4 out of 10. She states that she would like to go home. At this time I do believe the patient is stable for transfer home. She requested to be off of work today for which I did provide her a work excuse. I discussed with her to use [id number] Tylenol and Motrin and to follow-up with her primary care physician for further follow-up. She is to return for any new or worsening symptoms. She was amenable to discharge and had no further questions. DISPOSITION: The patient was discharged home in stable condition. The patient will follow up with primary care physician within 2 to 3 days CONDITION: Fair PROCEDURES: None FINAL IMPRESSION(S)/DIAGNOSES: 1. Acute headache suspect migraine headache versus cluster headache [place] Edgar M.D. headache Pain Score (Numeric/FACES): 10 - Related Data Allergies Allergy/AdvReac Type Severity Reaction Status Date / Time No Known Allergies Allergy Verified 03/09/20 22:31 Home Meds: Home Meds . [No Known Home Meds] 10/30/19 [History] Past Medical History - Past Health History Medical/Surgical History: Denies Medical/Surgical History HEENT History: Reports: None Cardiovascular History: Reports: None Respiratory History: Reports: Asthma Gastrointestinal History: Reports: None Genitourinary History: Reports: None FISHER SEAL History: Reports: None Musculoskeletal History: Reports: None Neurological History: Reports: Migraines Psychiatric History: Reports: None Endocrine/Metabolic History: Reports: None Hematologic History: Reports: None Immunologic History: Reports: None Oncologic (Cancer) History: Reports: None Dermatologic History: Reports: None - Infectious Disease History Infectious Disease History: Reports: None - Past Surgical History Head Surgeries/Procedures: Reports: None HEENT Surgical History: Reports: None Cardiovascular Surgical History: Reports: None Respiratory Surgical History: Reports: None GI Surgical History: Reports: None Female Surgical History: Reports: None Endocrine Surgical History: Reports: None Neurological Surgical History: Reports: None Musculoskeletal Surgical History: Reports: None Oncologic Surgical History: Reports: None Dermatological Surgical History: Reports: None Social & Family History - Family History Family Medical History: No Pertinent Family History - Tobacco Use Tobacco Use Status *Q: Never Tobacco User - Caffeine Use Caffeine Use: Reports: None - Recreational Drug Use Recreational Drug Use: No ED ROS GENERAL - Review of Systems Review Of Systems: See Below - Physical Exam Exam: See Below Course - Vital Signs Last Recorded V/S: Last Vital Signs Temp 36 C L 03/09/20 23:40 Pulse 76 03/09/20 23:40 Resp 18 03/09/20 23:40 BP 102/66 03/09/20 23:40 Pulse Ox 97 03/09/20 23:40 - Orders/Labs/Meds Meds: Medications Discontinued Medications Generic Name Dose Route Start Last Admin Trade Name Lester PRN Reason Stop Dose Admin Diphenhydramine HCl 25 mg 03/09/20 22:37 03/09/20 22:47 Benadryl IVPUSH 03/09/20 22:38 25 mg ONETIME ONE Administration Sodium Chloride 1,000 mls @ 999 mls/hr 03/09/20 22:45 03/09/20 22:42 Normal Saline IV 999 mls/hr ASDIRECTED CATHERINE Administration Ketorolac Tromethamine 15 mg 03/09/20 22:37 03/09/20 22:43 Toradol IVPUSH 03/09/20 22:38 15 mg ONETIME ONE Administration Prochlorperazine Edisylate 5 mg 03/09/20 22:37 03/09/20 22:42 Compazine IVPUSH 03/09/20 22:38 5 mg ONETIME ONE Administration Departure - Departure Time of Disposition: 23:33 Disposition: Home, Self-Care 01 Condition: Fair Clinical Impression: Migraine - Discharge Information *PRESCRIPTION DRUG MONITORING PROGRAM REVIEWED*: No *COPY OF PRESCRIPTION DRUG MONITORING REPORT IN PATIENT CARMEN: No Instructions: Migraine Headache, [id number] Referrals: PCP,None [Primary Care Provider] - Forms: ED Department Discharge Additional Instructions: Your evaluated today on an emergent basis. At this time I do believe you are experiencing her typical migraine. However I do recommend following up with your primary care physician and further follow-up with neurologist for continued management and prevention of your migraine. Please use [id number] Tylenol and Motrin as needed for headache relief. Return to the emergency department for any new or worsening symptoms such as trouble walking, vomiting that you cannot control, or trouble with speaking. I would like you to follow-up with your primary care physician this week. [facility] - Primary [facility] [address] [place] [address] [place] [address] The patient is informed of any results of their evaluation and diagnostic workup and all questions are answered. They are given discharge instructions and return precautions. The patient is stable for discharge. The patient states they understand and agree with the plan and that they will return if their symptoms get worse or if they have any new concerns. The following information is given to patients seen in the emergency department who are being discharged to home. This information is to outline your options for follow-up care. We provide all patients seen in our emergency department with a follow-up referral. The need for follow-up, as well as the timing and circumstances, are variable depending upon the specifics of your emergency department visit. If you don't have a primary care physician on staff, we will provide you with a referral. We always advise you to contact your personal physician following an emergency department visit to inform them of the circumstance of the visit and for follow-up with them and/or the need for any referrals to a consulting specialist. The emergency department will also refer you to a specialist when appropriate. This referral assures that you have the opportunity for follow-up care with a specialist. All of these measure are taken in an effort to provide you with optimal care, which includes your follow-up. Under all circumstances we always encourage you to contact your private physician who remains a resource for coordinating your care. When calling for follow-up care, please make the office aware that this follow-up is from your recent emergency room visit. If for any reason you are refused follow-up, please contact the [facility] Emergency Department at and asked to speak to the emergency department charge nurse. Sepsis Event Note (ED) - Evaluation Sepsis Screening Result: No Definite Risk - Focused Exam Vital Signs: Vital Signs Temp Pulse Resp BP Pulse Ox 03/09/20 23:40 36 C L 76 18 102/66 97 03/09/20 22:30 35.9 C L 71 18 121/77 100
[2020-03-09 23:42] VITALS: BP 102/66; PULSE 76
== END 2020-03-09 23:40 | disposition home or self-care (01) ==
LOC: MW.ED 22:24
DX: G43.909 Migraine, unspecified, not intractable, without status migrainosus (principal); J45.909 Unspecified asthma, uncomplicated
CPT/HCPCS: 96374; 96375; 99283; J0780; J1200; J1885; J7030; 99282